=== PATIENT | male | born 1950 | race Caucasian/White ===

== ENCOUNTER → 2019-02-16 | Outpatient (CLI) | payer MEDICARE ==
--- NOTE | 2019-02-16 10:00 | NUR ---
MBSS COMPLETED. -S/S OF ASPIRATION. RECOMMEND REGULAR TEXTURE, THIN LIQUIDS; PILLS WHOLE WITH LIQUIDS. RECOMMENDATIONS: 1. GI CONSULT Addendum: 02/16/19 at 1247 by MAIA RAMACHANDRAN, SPT ST Amended: Links added.
== END | disposition home or self-care (01) ==
LOC: RAH 09:52
PROVIDERS: ATTEND Otolaryngology
DX: R13.13 Dysphagia, pharyngeal phase (principal); C79.9 Secondary malignant neoplasm of unspecified site; Z90.89 Acquired absence of other organs
CPT/HCPCS: 74230; 92611